=== PATIENT | male | born 1955 | race Caucasian/White ===

== ENCOUNTER 2020-01-18 06:00 | Outpatient (RCR) | payer MEDICARE, MEDICAID, SELFPAY | END 2020-01-27 23:59 | disposition home or self-care (01) | LOC: MPT 06:00 | PROVIDERS: PCP Nurse Practitioner; Referring Provider Registered Nurse; Visit Provider Registered Nurse | DX: M54.9 Dorsalgia, unspecified (principal); M54.30 Sciatica, unspecified side | CPT/HCPCS: 97110; 97140; 97161; 97530 ==

== ENCOUNTER 2020-01-28 06:00 | Outpatient (RCR) | payer MEDICARE, MEDICAID, SELFPAY | END 2020-02-27 23:59 | disposition home or self-care (01) | LOC: MPT 06:00 | PROVIDERS: PCP Nurse Practitioner; Referring Provider Registered Nurse; Visit Provider Registered Nurse | DX: M54.42 Lumbago with sciatica, left side (principal) | CPT/HCPCS: 97110; 97116; 97140; 97530 ==

== ENCOUNTER 2020-02-28 06:00 | Outpatient (RCR) | payer MEDICARE, MEDICAID, SELFPAY | END 2020-03-28 23:59 | disposition home or self-care (01) | LOC: MPT 06:00 | PROVIDERS: PCP Nurse Practitioner; Referring Provider Registered Nurse; Visit Provider Registered Nurse | DX: M54.42 Lumbago with sciatica, left side (principal) | CPT/HCPCS: 97140; 97530 ==

== ENCOUNTER 2020-03-05 08:50 | Outpatient (CLI) | payer MEDICARE, MEDICAID, SELFPAY ==
--- NOTE | 2020-03-05 | MR_ITS ---
WS: [id number] MRI LEFT HIP NONCONTRAST TECHNIQUE: Axial T1, axial T2 fat sat, coronal T1, coronal STIR, sagittal T2 fat sat, sagittal T1, an d sagittal T2 fat sat, of both hips. CLINICAL INFORMATION: ABNORMAL FINDINGS OF DIAGNOSTIC IMAGING OF LIMB COMPARISON: None. FINDINGS: Normal anatomic alignment. No acute fractures. Normal bone marrow signal in the femoral heads bilater ally. No evidence of avascular necrosis. Mild degenerative arthritis both hips with joint space narro wing. Normal bone marrow signal in the proximal femurs and femoral necks. Small amount of edema in the left sacrum adjacent to the sacroiliac joint likely degenerative. Normal bone marrow signal in the remainder of the sacrum and visualized bony pelvis. Normal pubic rami. Nor mal bone marrow signal in the lower lumbar spine. No sacral insufficiency fractures. No inguinal lymp hadenopathy. Normal visualized bladder MR/MR hip LT wo con* [id number] IMPRESSION: 1. Left hip is normal in appearance. No evidence of avascular necrosis or acut e fracture. No bone marrow edema in the left hip. 2. Mild degenerative arthritis both hips with mild joint space narrowing. 3. Pubic rami are normal. 4. Small amount of edema in the left sacrum adjacent to the sacroiliac joint l ikely degenerative. Bone marrow signal in the sacrum is otherwise normal.
== END 2020-03-05 08:51 | disposition home or self-care (01) ==
LOC: RADSHAW 08:51
PROVIDERS: PCP Nurse Practitioner; Visit Provider Nurse Practitioner
DX: M25.552 Pain in left hip (principal); M16.0 Bilateral primary osteoarthritis of hip; R60.9 Edema, unspecified
CPT/HCPCS: 73721

== ENCOUNTER → 2020-05-27 16:28 | Outpatient (BNVA) | payer MEDICARE, MEDICAID, SELFPAY | PROVIDERS: PCP Nurse Practitioner; Visit Provider Nurse Practitioner Family | DX: M75.41 Impingement syndrome of right shoulder (principal) | CPT/HCPCS: 73030 ==

== ENCOUNTER 2020-11-07 07:39 | Outpatient (CLI) | payer MEDICARE, MEDICAID, SELFPAY ==
--- NOTE | 2020-11-07 07:56 | US_ITS ---
WS: [id number] ULTRASOUND BREAST LEFT TECHNIQUE: Ultrasound left breast focused area of concern. CLINICAL INFORMATION: BREAST LUMP OR MASS COMPARISON: None. FINDINGS: Ultrasound left breast. Right for comparison. Dense subareolar breast tissue consistent with gynecoma stia. Ductal dilatation with internal debris visualized in the left breast. Comparison right breast i s unremarkable. No well-circumscribed mass or lesion to target for biopsy. Ductal ectasia is indeterminant and recomm end further evaluation with left breast diagnostic mammography. US/US breast LT limited* [id number] IMPRESSION: BI-RADS 0 incomplete FOLLOW UP: Additional imaging Recommend diagnostic mammography left breast for further evaluation.
== END 2020-11-07 07:40 | disposition home or self-care (01) ==
LOC: RAD 07:49
PROVIDERS: PCP Nurse Practitioner Family; Visit Provider Nurse Practitioner Family
DX: N63.20 Unspecified lump in the left breast, unspecified quadrant (principal)
CPT/HCPCS: 76642

== ENCOUNTER 2020-11-27 09:36 | Outpatient (CLI) | payer MEDICARE, MEDICAID, SELFPAY ==
--- NOTE | 2020-11-27 09:47 | MM_ITS ---
WS: [id number] BILATERAL DIGITAL DIAGNOSTIC MAMMOGRAM MAMMOGRAPHY WITH CAD CLINICAL INFORMATION: BREAST LUMP/MASS;GYNECOMASTIA LT BREAST COMPARISON: Recent ultrasound November 07, 2020 TECHNIQUE: Bilateral CC, MLO, and ML views. FINDINGS: Improving left breast swelling Scattered fibroglandular densities bilaterally. Palpable marker left breast near the areola. Recent u ltrasound demonstrated suggestion of ductal dilatation with some internal debris in the left breast n ear the areola. Dense subareolar tissue in this location. Asymmetric flame-shaped parenchymal tissue subareolar left breast in the area of palpable concern. Ma mmographic appearance most consistent with gynecomastia. No focal lesions to target for biopsy. Also consider superimposed mastitis considering the internal debris and ductal dilatation on the prio r ultrasound. Findings have a benign appearance. Right breast is unremarkable. MM/[place] [id number] IMPRESSION: BI-RADS: 2-Benign FOLLOW UP: See Report Mammographic appearance consistent with benign gynecomastia. Also consider supe rimposed mastitis considering the previously described ultrasound findings.
== END 2020-11-27 09:37 | disposition home or self-care (01) ==
LOC: RADSHAW 09:41
PROVIDERS: PCP Nurse Practitioner Family; Visit Provider Nurse Practitioner Family
DX: N63.20 Unspecified lump in the left breast, unspecified quadrant (principal); N62 Hypertrophy of breast
CPT/HCPCS: 77066

== ENCOUNTER → 2022-04-15 09:20 | Outpatient (BNVA) | payer MEDICARE, MEDICAID, SELFPAY | PROVIDERS: PCP Nurse Practitioner Family; Visit Provider Registered Nurse | DX: G47.10 Hypersomnia, unspecified (principal); Z79.899 Other long term (current) drug therapy; G47.00 Insomnia, unspecified | CPT/HCPCS: 80053; 80061; 83036; 84443; 85025 ==

== ENCOUNTER 2022-07-07 20:00 | Outpatient (CLI) | payer MEDICARE, MEDICAID, SELFPAY | END 2022-07-07 20:01 | disposition home or self-care (01) | LOC: SLEEP 07-08 07:40 | PROVIDERS: PCP Nurse Practitioner Family; Visit Provider Registered Nurse | DX: G47.33 Obstructive sleep apnea (adult) (pediatric) (principal) | CPT/HCPCS: 95811 ==

== ENCOUNTER → 2022-12-04 09:34 | Outpatient (BNVA) | payer MEDICARE, MEDICAID, SELFPAY | PROVIDERS: PCP Family Medicine; Visit Provider Internal Medicine Cardiovascular Disease | DX: I10 Essential (primary) hypertension (principal); G47.33 Obstructive sleep apnea (adult) (pediatric); E78.5 Hyperlipidemia, unspecified; Z87.891 Personal history of nicotine dependence | CPT/HCPCS: 99213 ==

== ENCOUNTER → 2023-04-06 13:34 | Outpatient (BNVA) | payer MEDICARE, MEDICAID, SELFPAY | PROVIDERS: PCP Family Medicine; Visit Provider Internal Medicine Pulmonary Disease | DX: R06.09 Other forms of dyspnea (principal); Z87.891 Personal history of nicotine dependence; Z86.16 Personal history of COVID-19; Z91.09 Other allergy status, other than to drugs and biological substances | CPT/HCPCS: 36415; 80053; 82785; 85025; 86003; 99204 ==

== ENCOUNTER 2023-04-27 09:02 | Outpatient (CLI) | payer MEDICARE, MEDICAID, SELFPAY ==
[2023-04-27 09:57] VITALS: PULSE 90; RESP 18; O2SAT 93
[2023-04-27] MEDS: albuterol 2.5 mg/3 mL Neb INHALATION (09:57)
[2023-04-27 10:01] VITALS: PULSE 87
== END 2023-04-27 09:03 | disposition home or self-care (01) ==
LOC: RT 09:04
PROVIDERS: PCP Family Medicine; Visit Provider Internal Medicine Pulmonary Disease
DX: R06.02 Shortness of breath (principal); T78.40XA Allergy, unspecified, initial encounter; Y99.9 Unspecified external cause status; R06.09 Other forms of dyspnea
CPT/HCPCS: 36415; 80053; 82785; 85025; 86003; 94060; 94618; 94726; 94729; J7613

== ENCOUNTER 2023-04-27 09:38 | Outpatient (CLI) | payer MEDICARE, MEDICAID, SELFPAY ==
[2023-04-27] MEDS: perflutren protein-a microsphr 0.22 mg/mL SDV 3 mL IV (12:23)
--- NOTE | 2023-04-27 13:15 | USCV_ITS ---
Burt Amado Age: 67 Gender: M : 1955 Exam Date: 04/27/2023 10:27 Ordering Phys: Marin Avila MD Technologist: Sharath Benitez [place]am Location[place] [facility] [place]: Shortness of breath BP: 154 / 81 HR: 89 Rhythm: Sinus Technical Quality: Suboptimal MEASUREMENTS (Male / Female) Normal Values 2D ECHO LVOT Diameter 2.0 cm LV Ejection Fraction MOD 2C 77.6 % LV Ejection Fraction 2C AL 78.1 % LA Diameter 3.4 cm LA Width 3.7 cm LA Height 4.4 cm RA Width 4.3 cm RA Height 5.4 cm Aorta at Sinotubular Diameter 2.5 cm IVC Diameter 1.9 cm M-MODE Aortic Annulus Diameter 3.0 cm LA Ao Ratio MM 1.3 MV E Point Septal Separation 0.7 cm DOPPLER AV Peak Velocity 143.0 cm/s LVOT Peak Velocity 103.0 cm/s AV Area Cont Eq vti 2.3 cm squared AV Area Cont Eq pk 2.3 cm squared MV Peak Velocity 98.0 cm/s MV Area PHT 5.0 cm squared Mitral E to A Ratio 0.9 MV E' Velocity 32.0 cm/s Mitral E to MV E' Ratio 6.2 Mitral E to LV E' Lateral Ratio 6.2 Mitral E to LV E' Septal Ratio 6.3 TR Peak Velocity 221.3 cm/s TR Peak Gradient 19.6 mmHg TR Mean Velocity 164.0 cm/s TR Mean Gradient 11.8 mmHg TR Velocity Time Integral 52.8 cm Right Atrial Pressure 3.0 mmHg Pulmonary Artery Systolic Pressu 22.6 mmHg PV Peak Velocity 120.5 cm/s RV Acceleration Time 0.1 s RV Ejection Time 0.3 s RV AcT/ET 0.5 FINDINGS Left Ventricle Normal left ventricular size and systolic function with no regional wall motion abnormalities. Left ventricular ejection fraction is estimated at 70 %. Normal diastolic function. Right Ventricle Normal right ventricular size and systolic function. Right Atrium Normal right atrial size. Left Atrium Normal left atrial size. Mitral Valve Mildly thickened mitral valve. No mitral valve stenosis. No mitral valve regurgitation. Aortic Valve Aortic valve not well visualized. No aortic valve stenosis. Trace aortic valve regurgitation. Tricuspid Valve Structurally normal tricuspid valve. Trace tricuspid valve regurgitation. Pulmonic Valve Pulmonic valve not well visualized. No pulmonary valve stenosis. Trace pulmonary valve regurgitation. Pericardium No pericardial effusion. Aorta Normal size aortic root and proximal ascending aorta. IVC Inferior vena cava not visualized. CONCLUSIONS 1. Normal left ventricular size and systolic function with no regional wall motion abnormalities. Left ventricular ejection fraction is estimated at 70 %. Normal diastolic function. 2. No prior similar studies to compare. Venus Springer MD (Electronically Signed) Final Date: 02 May 2023 14:22 S
== END 2023-04-27 09:39 | disposition home or self-care (01) ==
LOC: RT 09:39
PROVIDERS: PCP Family Medicine; Visit Provider Internal Medicine Pulmonary Disease
DX: R06.02 Shortness of breath (principal)
CPT/HCPCS: 94060; 94618; 94726; 94729; C8929; J7613

== ENCOUNTER → 2023-05-18 08:30 | Outpatient (BNVA) | payer MEDICARE, MEDICAID, SELFPAY | PROVIDERS: PCP Family Medicine; Visit Provider Specialist | DX: I10 Essential (primary) hypertension (principal); E78.5 Hyperlipidemia, unspecified; G47.33 Obstructive sleep apnea (adult) (pediatric); Z87.891 Personal history of nicotine dependence | CPT/HCPCS: 99214 ==

== ENCOUNTER → 2023-06-09 08:45 | Outpatient (BNVA) | payer MEDICARE, OTHER, SELFPAY | PROVIDERS: PCP Family Medicine; Visit Provider Registered Nurse | DX: Z79.899 Other long term (current) drug therapy (principal) | CPT/HCPCS: 80061; 83036 ==

== ENCOUNTER → 2023-11-16 10:58 | Outpatient (BNVA) | payer MEDICARE, MEDICAID, SELFPAY | PROVIDERS: PCP Family Medicine; Visit Provider Internal Medicine Cardiovascular Disease | DX: R07.9 Chest pain, unspecified (principal); E78.2 Mixed hyperlipidemia; I10 Essential (primary) hypertension; J44.9 Chronic obstructive pulmonary disease, unspecified; G47.33 Obstructive sleep apnea (adult) (pediatric); Z87.891 Personal history of nicotine dependence; R94.31 Abnormal electrocardiogram [ECG] [EKG] | CPT/HCPCS: 93005; 99213 ==

== ENCOUNTER → 2024-03-16 13:22 | Outpatient (BNVA) | payer MEDICAID, SELFPAY | PROVIDERS: PCP Family Medicine; Visit Provider Psychiatry & Neurology Psychiatry | DX: Z79.899 Other long term (current) drug therapy (principal); F33.42 Major depressive disorder, recurrent, in full remission; F43.12 Post-traumatic stress disorder, chronic; G47.01 Insomnia due to medical condition; G47.33 Obstructive sleep apnea (adult) (pediatric); G47.34 Idiopathic sleep related nonobstructive alveolar hypoventilation | CPT/HCPCS: 80053; 80061; 83036; 84443; 85025 ==